=== PATIENT | male | born 1945 | race Caucasian/White ===

== ENCOUNTER 2021-08-26 09:21 | Outpatient (CLI) | payer MEDICARE, BC | END 2021-08-26 09:22 | disposition home or self-care (01) | LOC: SCSMRI 09:21 | PROVIDERS: ATTEND Neurological Surgery | DX: G57.31 Lesion of lateral popliteal nerve, right lower limb (principal); S83.241A Other tear of medial meniscus, current injury, right knee, initial encounter; M70.41 Prepatellar bursitis, right knee; M71.21 Synovial cyst of popliteal space [Baker], right knee | CPT/HCPCS: 82565 ==